=== PATIENT | female | born 1955 | race Two or more races ===

== ENCOUNTER 2023-01-13 22:35 | Inpatient (IN) | payer OTHER ==
[~2023-01-13] VITALS: Ht 167.6 cm; Wt 61.7 kg
[2023-01-14 02:04] LABS: Basophils # (auto) 0 10 ^3/uL (0-0.2); Basophils % (auto) 0.4 % (0.0-2.0); Eosinophils # (auto) 0.2 10 ^3/uL (0-0.8); Eosinophils % (auto) 2.4 % (0.0-7.0); Hematocrit 35.2 % (36.0-46.0); Hemoglobin 11.8 g/dL (12.2-16.2); Lymphocytes # (auto) 1.4 10 ^3/uL (0.4-5.4); Lymphocytes % (auto) 18.6 % (10.0-50.0); Mean Corpuscular Hemoglobin 30.9 pg (28.0-32.0); Mean Corpuscular Hgb Conc. 33.6 g/dL (32.0-36.0); Mean Corpuscular Volume 92.1 fL (80.0-100.0); Monocytes # (auto) 0.5 10 ^3/uL (0-1.3); Monocytes % (auto) 6.9 % (0.0-12.0); Neutrophils # (auto) 5.2 10 ^3/uL (1.6-8.6); Neutrophils % (auto) 71.7 % (37.0-80.0); Nucleated Red Blood Cells % 0.1 %; Red Blood Cells 3.82 10^6/uL (4.0-5.20); White Blood Cell 7.3 10^3/uL (4.4-10.8)
[2023-01-14 02:22] LABS: Albumin 2.9 g/dL (3.4-5.0); Calcium 8.7 mg/dL (8.5-10.1); Potassium 3.5 mmol/L (3.5-5.1)
[2023-01-14 02:24] LABS: BUN/Creatinine Ratio 17.9 (10.0-20.0)
[2023-01-14 02:27] LABS: Bilirubin, Total 0.2 mg/dL (0.2-1.0); Total Protein 6.9 g/dL (6.4-8.2)
[2023-01-14] MEDS ORDERED: VANCOMYCIN PER PHARMACY 0 MG IV SCH ×2 (02:45→11:45)
[2023-01-14] MEDS ORDERED: VANCOMYCIN 1GM/250ML 250 ML IV ONE (03:00)
[2023-01-14] MEDS ORDERED: HYDROcodone-ACET 10/325MG TAB PO ONE (04:30)
[2023-01-14] MEDS ORDERED: ONDANSETRON HCL 4 MG/2 ML VIAL IV PRN (11:45)
[2023-01-14] MEDS ORDERED: MORPHINE SULFATE INJ 2 MG/ml SYRG IV PRN (11:45)
[2023-01-14] MEDS ORDERED: ACETAMINOPHEN 325 MG TAB PO PRN (11:45)
[2023-01-14] MEDS ORDERED: DOCUSATE SOD 100 MG CAP PO PRN (11:45)
[2023-01-14] MEDS ORDERED: PIPERACILLIN-TAZOB 3.375GM 100 ML IV SCH (12:00)
[2023-01-14] MEDS ORDERED: VANCOMYCIN 1GM/250ML 250 ML IV SCH ×2 (12:00)
[2023-01-14] MEDS: HYDROcodone-ACET 5/325MG TAB PO PRN ×2 (15:27→23:31)
[2023-01-14] MEDS ORDERED: PIPERACILLIN-TAZOB 3.375GM 100 ML IV ONE (20:00)
[2023-01-14] MEDS: ASCORBIC ACID 500 MG TAB PO SCH (22:43)
[2023-01-15] MEDS: PIPERACILLIN-TAZOB 3.375GM 100 ML IV SCH ×4 (03:22→20:53)
[2023-01-15 03:49] LABS: Albumin 2.8 g/dL (3.4-5.0); BUN/Creatinine Ratio 21.3 (10.0-20.0); Calcium 8.9 mg/dL (8.5-10.1); Phosphorus 3.2 mg/dL (2.5-4.90); Potassium 4.5 mmol/L (3.5-5.1)
[2023-01-15] MEDS: HYDROcodone-ACET 5/325MG TAB PO PRN ×3 (08:29→21:03)
[2023-01-15] MEDS: ZINC SULFATE 220mg CAP or TAB PO SCH (10:04)
[2023-01-15] MEDS: ASCORBIC ACID 500 MG TAB PO SCH ×2 (10:04→20:54)
[2023-01-15] MEDS: ENOXAPARIN SOD 40 MG/0.4 ML SYRINGE SC SCH (10:04)
[2023-01-15] MEDS ORDERED: HYDR-4798 PO (12:25)
[2023-01-15 13:00] VITALS: BP 99/69
[2023-01-15 17:00] VITALS: BP 127/89
[2023-01-15] MEDS: VANCOMYCIN 1GM/250ML 250 ML IV SCH (17:21)
[2023-01-15 22:00] VITALS: BP 99/66
[2023-01-16] MEDS: PIPERACILLIN-TAZOB 3.375GM 100 ML IV SCH ×2 (02:05→11:04)
[2023-01-16 05:00] VITALS: BP 107/65
[2023-01-16] MEDS: HYDROcodone-ACET 5/325MG TAB PO PRN (07:33)
[2023-01-16 08:40] VITALS: BP 118/71
[2023-01-16] MEDS: ASCORBIC ACID 500 MG TAB PO SCH (09:15)
[2023-01-16] MEDS: ENOXAPARIN SOD 40 MG/0.4 ML SYRINGE SC SCH (09:15)
[2023-01-16] MEDS: ZINC SULFATE 220mg CAP or TAB PO SCH (09:15)
[2023-01-16] MEDS: VANCOMYCIN 1GM/250ML 250 ML IV SCH (12:25)
[2023-01-16 12:54] VITALS: BP 117/67
[2023-01-16] MEDS ORDERED: PENICILLIN V POTASSIUM 250 MG TAB PO ONE (13:45)
[2023-01-16] MEDS ORDERED: PENI500T2 PO (13:56)
[2023-01-16 15:02] VITALS: BP 117/67
[2023-01-16] MEDS ORDERED: PIPERACILLIN-TAZOB 3.375GM 100 ML IV SCH (19:00)
[2023-01-17] MEDS ORDERED: VANCOMYCIN 1GM/250ML 250 ML IV SCH
== END 2023-01-16 15:35 | disposition home or self-care (01) | DRG 603 ==
LOC: ER 22:35 → OVERFLOW 01-14 11:43 → CENTRAL 01-15 10:59
PROVIDERS: ADMIT Internal Medicine; ATTEND Internal Medicine
DX: L03.115 Cellulitis of right lower limb (principal); F11.20 Opioid dependence, uncomplicated; F17.210 Nicotine dependence, cigarettes, uncomplicated; G89.29 Other chronic pain; M54.9 Dorsalgia, unspecified; R59.1 Generalized enlarged lymph nodes; G62.9 Polyneuropathy, unspecified; Z88.1 Allergy status to other antibiotic agents
CPT/HCPCS: 36415; 73590; 80053; 80069; 80202; 83605; 85025; 87081; 93971; 96365; 96366; 96367; 97110; 97116; 97163; 97530; G0378; J2543

== ENCOUNTER 2023-09-18 15:54 | Emergency (ER) | payer OTHER ==
[~2023-09-18] VITALS: Ht 154.9 cm; Wt 64.4 kg
[~2023-09-18 15:54] MED LIST: HYDR-4798 PO; PENI500T2 PO
[2023-09-18] MEDS ORDERED: CLIN150C18 PO (22:03)
[2023-09-18 22:20] VITALS: BP 171/69; PULSE 74; RESP 18; O2SAT 100
[2023-09-18] MEDS: diphenhdrAMINE HCL 25 MG CAP PO ONE (22:22)
== END 2023-09-18 22:23 | disposition home or self-care (01) ==
LOC: ER 15:54
DX: L03.115 Cellulitis of right lower limb (principal); F17.210 Nicotine dependence, cigarettes, uncomplicated; Z90.49 Acquired absence of other specified parts of digestive tract; Z79.2 Long term (current) use of antibiotics; Z79.899 Other long term (current) drug therapy; Z88.8 Allergy status to other drugs, medicaments and biological substances
CPT/HCPCS: 93971

== ENCOUNTER 2023-10-29 02:39 | Emergency (ER) | payer OTHER ==
[~2023-10-29] VITALS: Ht 167.6 cm; Wt 64.0 kg
[~2023-10-29 02:39] MED LIST changes: +DOXY-448 PO; -HYDR-4798 PO; +LEVO500T91 PO; -PENI500T2 PO
[2023-10-29] MEDS ORDERED: [UNRECOGNIZED DRUG - CODE] PO (08:34)
[2023-10-29 09:42] VITALS: PULSE 71; RESP 20; O2SAT 99
[2023-10-29 09:54] VITALS: BP 140/70; PULSE 84; RESP 16; TEMP 98; O2SAT 99
== END 2023-10-29 09:17 | disposition home or self-care (01) ==
LOC: ER 02:39
DX: B82.9 Intestinal parasitism, unspecified (principal); B88.8 Other specified infestations; F17.210 Nicotine dependence, cigarettes, uncomplicated; Z88.6 Allergy status to analgesic agent

== ENCOUNTER 2023-11-05 22:25 | Emergency (ER) | payer OTHER ==
[~2023-11-05] VITALS: Ht 167.6 cm; Wt 61.8 kg
[~2023-11-05 22:25] MED LIST changes: +[UNRECOGNIZED DRUG - CODE] PO
[2023-11-06 00:47] LABS: Basophils # (auto) 0 10 ^3/uL (0-0.2); Basophils % (auto) 0.5 % (0.0-2.0); Eosinophils # (auto) 0.3 10 ^3/uL (0-0.8); Hematocrit 37.9 % (36.0-46.0); Hemoglobin 12.6 g/dL (12.2-16.2); Lymphocytes # (auto) 1.5 10 ^3/uL (0.4-5.4); Lymphocytes % (auto) 19.8 % (10.0-50.0); Mean Corpuscular Hemoglobin 29.5 pg (28.0-32.0); Mean Corpuscular Hgb Conc. 33.2 g/dL (32.0-36.0); Mean Corpuscular Volume 88.7 fL (80.0-100.0); Monocytes # (auto) 0.6 10 ^3/uL (0-1.3); Monocytes % (auto) 7.6 % (0.0-12.0); Neutrophils # (auto) 5.1 10 ^3/uL (1.6-8.6); Neutrophils % (auto) 68.1 % (37.0-80.0); Red Blood Cells 4.27 10^6/uL (4.0-5.20); Red Cell Distribution Width 13.6 % (11.8-14.3); White Blood Cell 7.5 10^3/uL (4.4-10.8)
[2023-11-06 00:59] LABS: Alanine Aminotransferase 12 U/L (7-40); Albumin 4.3 g/dL (3.2-4.8); Alkaline Phosphatase 110 U/L (46-116); Anion Gap 7 (5-15); Aspartate Aminotransferase 17 U/L (13-40); BUN/Creatinine Ratio 20.9 (10.0-20.0); Blood Urea Nitrogen 19 mg/dL (9-23); Calcium 10.6 mg/dL (8.7-10.4); Carbon Dioxide 28 mmol/L (20-30); Chloride 103 mmol/L (98-107); Glucose 144 mg/dL (74-106); Lipase 77 U/L (12-53); Sodium 138 mmol/L (136-145)
[2023-11-06 01:00] LABS: Bilirubin, Total 0.3 mg/dL (0.2-1.0); Total Protein 7.2 g/dL (5.7-8.2)
[2023-11-06] MEDS ORDERED: ACET500T58 PO (01:20)
[2023-11-06] MEDS ORDERED: BACDST PO (01:20)
[2023-11-06] MEDS ORDERED: [UNRECOGNIZED DRUG - CODE] PO (01:20)
[2023-11-06 01:27] LABS: Urine Bacteria FEW /hpf (None Seen); Urine Blood TRACE /uL (Negative); Urine Budding Yeast OCCASIONAL /hpf (None Seen); Urine Clarity Clear (Clear); Urine Color Light-Yellow (Yellow); Urine Protein, UAD Negative (Negative); Urine Specific Gravity 1.018 (1.001-1.035); Urine Urobilinogen Normal (Negative); Urine WBC 3 /hpf (0 - 5)
[2023-11-06] MEDS: SULFAMETHOX W/TRIMETH(800/160MG) DS TAB PO ONE (01:30)
[2023-11-06] MEDS: HYDROcodone-ACET 5/325MG TAB PO ONE (02:53)
[2023-11-06 03:13] VITALS: BP 156/92; TEMP 98.7; O2SAT 97
[2023-11-06 03:25] VITALS: PULSE 108; RESP 20
== END 2023-11-06 03:24 | disposition home or self-care (01) ==
LOC: ER 22:25
DX: B80 Enterobiasis (principal); L03.116 Cellulitis of left lower limb; L03.115 Cellulitis of right lower limb
CPT/HCPCS: 36415; 80053; 81001; 83605; 83690; 84484; 85025

== ENCOUNTER 2024-05-04 18:41 | Emergency (ER) | payer OTHER ==
[~2024-05-04] VITALS: Ht 167.6 cm; Wt 59.7 kg
[~2024-05-04 18:41] MED LIST changes: +ACET500T58 PO; +BACDST PO; -DOXY-448 PO; +DOXY100C79 PO
[2024-05-04] MEDS: HYDROcodone-ACET 5/325MG TAB PO ONE (20:00)
[2024-05-04 20:05] VITALS: BP 131/78; PULSE 90; RESP 17; TEMP 98.4; O2SAT 98
[2024-05-04] MEDS ORDERED: HYDR-4902 PO (20:16)
== END 2024-05-04 20:37 | disposition home or self-care (01) ==
LOC: ER 18:41
DX: S29.011A Strain of muscle and tendon of front wall of thorax, initial encounter (principal); F17.210 Nicotine dependence, cigarettes, uncomplicated; Z90.49 Acquired absence of other specified parts of digestive tract; Z88.1 Allergy status to other antibiotic agents; Z79.899 Other long term (current) drug therapy; W01.198A Fall on same level from slipping, tripping and stumbling with subsequent striking against other object, initial encounter; Y93.89 Activity, other specified; Y92.098 Other place in other non-institutional residence as the place of occurrence of the external cause; Y99.8 Other external cause status
CPT/HCPCS: 71101

== ENCOUNTER 2024-05-26 01:38 | Emergency (ER) | payer OTHER ==
[~2024-05-26] VITALS: Ht 167.6 cm; Wt 63.0 kg
[~2024-05-26 01:38] MED LIST changes: +HYDR-4902 PO
[2024-05-26 02:53] VITALS: BP 139/79; PULSE 90; RESP 18; TEMP 97.7; O2SAT 99
--- NOTE | 2024-05-26 02:55 | ED.PDOC ---
History of Present Illness(SKN HPI Comments THIS IS A 68-YEAR-OLD FEMALE PRESENTS TO THE ED CHIEF COMPLAINT RASH TIMES 1 YEAR. PATIENT REPORTS SPOUSE WITH THE SAME RASH. SHE STATES SHE WAS TOLD IT WAS SCABIES HOWEVER DISAGREES WITH THIS DIAGNOSIS. SHE STATES TREATMENTS IN THE PAST WITH HELP. DENIES FEVER, NAUSEA, VOMITING, CHEST PAIN, SHORTNESS OF BREATH. Chief Complaint: Rash Time Seen by MD: 01:48 Primary Care Provider: RAOUL History of Present Illness: Nurses Notes, Medications, Allergies Allergies: Coded Allergies: Ceftriaxone (Verified Allergy, Unknown, 01/13/23) Home Meds Active Scripts Hydrocodone-Acetaminophen (Hydrocodone Bitartrate/AC 5-325 mg) 1 Tab Tab, 1 TAB PO Q12HP PRN for 2 Days, #4 TAB Prov:CHRISTOPH DEL VALLE MD 05/04/24 Mebendazole (Emverm) 100 Mg Chw, 100 MG PO BID for 3 Days, #6 TAB.CHEW Prov:OLMAN HELLER [facility] 11/06/23 Acetaminophen (Acetaminophen) 500 Mg Tab, 500 MG PO Q4HP PRN, #30 TAB Prov:OLMAN HELLER 11/06/23 Sulfamethoxazole W/Trimethopri (Bactrim Ds Tablet) 1 Tab Tb, 1 TAB PO BID for 10 Days, #20 TAB Prov:OLMAN HELLER 11/06/23 Mebendazole (Emverm) 100 Mg Chw, 100 MG PO BID for 3 Days, #6 TAB.CHEW 1 Refill Prov:TAI WEAVERP 10/29/23 Levofloxacin Hemihydrate (LEVAQUIN 500 MG) 500 Mg Tab, 1 TAB PO DAILY for 21 Days, #21 TAB Prov:DAVID RESENDEZ MD 10/09/23 Doxycycline (Monohydrate) (Doxycycline) 100 Mg Cap, 100 MG PO BID for 21 Days, #42 CAP Prov:DAVID RESENDEZ MD 10/09/23 Mode of Arrival: Ambulatory Past Medical History PAST MEDICAL HISTORY: PUD Surgical History: Appendectomy CLINICAL INFORMATICS SPECIALIST History: No Pertinent CLINICAL INFORMATICS SPECIALIST History Family History Family History: Reviewed,noncontributory to illness Social History Smoker: Cigarettes Alcohol: Denies ETOH Use Drugs: Denies Drug Use Lives In: Home Constitutional: denies: chills, diaphoresis, fatigue, fever, malaise, sweats, weakness, others EENTM: denies: blurred vision, double vision, ear bleeding, ear discharge, ear drainage, ear pain, ear ringing, eye pain, eye redness, hearing loss, mouth pain, mouth swelling, nasal discharge, nose bleeding, nose congestion, nose pain, photophobia, tearing, throat pain, throat swelling, voice changes, others Respiratory: denies: cough, hemoptysis, orthopnea, SOB at rest, shortness of breath, SOB with excertion, stridor, wheezing, others Cardiovascular: denies: chest pain, dizzy spells, diaphoresis, Dyspnea on exertion, edema, irregular heart beat, left arm pain, lightheadedness, palpitations, PND, syncope, others Gastrointestinal: denies: abdomen distended, abdominal pain, blood streaked bowels, constipated, diarrhea, dysphagia, difficulty swallowing, hematemesis, melena, nausea, poor appetite, poor fluid intake, rectal bleeding, rectal pain, vomiting, others Genitourinary: denies: abnormal vagina bleeding, burning, dyspareunia, dysuria, flank pain, frequency, hematuria, incontinence, pain, , vagina discharge, urgency, others Neurological: denies: dizziness, fainting, headache, left sided numbness, left sided weakness, numbness, paresthesia, pre-existing deficit, right sided numbness, right sided weakness, seizure, speech problems, tingling, tremors, weakness, others Musculoskeletal: denies: back pain, gout, joint pain, joint swelling, muscle pain, muscle stiffness, neck pain, others Integumetry: reports: rash; denies: bruises, change in color, change in hair/nails, dryness, laceration, lesions, lumps, wounds, others Allergic/Immunocompromised: denies: Difficulty Healing, Frequent Infections, Hives, Itching, others Hematologic/Lymphatic: denies: anemia, blood clots, easy bleeding, easy bruising, swollen glands, others Endocrine: denies: excessive hunger, excessive sweating, excessive thirst, excessive urination, flushing, intolerance to cold, intolerance to heat, unexplained weight gain, unexplained weight loss, others Psychiatric: denies: anxiety, bipolar disorder, depression, hopeless, panic disorder, schizophrenia, sleepless, suicidal, others Physical Exam General Appearance: No Apparent Distress, Normal HEENT: Normal ENT Inspection, Pharynx Normal Neck: Full Range of Motion, Non-Tender Respiratory: Chest Non-Tender, Lungs Clear, No Accessory Muscle Use, No Respiratory Distress, Normal Breath Sounds Cardiovascular: No Murmur, Normal Peripheral Pulses, Regular Rate/Rhythm Breast Exam: Deferred Gastrointestinal: No Organomegaly, Non Tender, No Pulsatile Mass, Normal Bowel Sounds, Soft Genitalia: Deferred Pelvic: Deferred Rectal: Deferred Extremities: Normal capillary refill, Normal inspection, Normal range of motion, Non-tender, No pedal edema Musculoskeletal : Apperance: Normal Neurologic: Alert, slitting and shipping supervisor II-XII nml as Tested, No Motor Deficits, Normal Affect, Normal Mood, No Sensory Deficits Cerebellar Function: Normal Reflexes: Normal Skin: Dry, Normal Color, Warm Lymphatic: No Adenopathy Was a procedure done? Was a procedure done?: No Differential Diagnosis (INTG) Differential Diagnosis: Cellulitis X-Ray, Labs, Meds, VS Vital Signs Date Time Temp Pulse Resp B/P (MAP) Pulse Ox O2 Delivery O2 Flow Rate FiO2 05/26/24 02:53 90 18 99 Room Air 05/26/24 02:53 97.7 90 18 139/79 (99) 99 97.7 05/26/24 02:39 97.7 90 18 139/79 (99) 99 X-Ray, Labs, Meds, VS Comment LIKELY SHINGLES WE WILL START WITH ACYCLOVIR. ADVISED TO FOLLOW UP WITH HER PCP IN 2-3 DAYS FOR RE-EVALUATION. ADVISED TO RETURN TO THE ER FOR INCREASING PAIN, INCREASING RASH, OR ANY EYE INVOLVEMENT. PATIENT AGREES WITH DISCHARGE PLAN OF CARE. Time of 1ST Reevaluation: 03:01 Reevaluation 1ST: Unchanged Patient Education/Counseling: Diagnosis, Treatment, Prognosis, Need For Follow Up Family Education/Counseling: Diagnosis, Treatment, Prognosis, Need For Follow Up Departure 1 Departure Time of Disposition: 03:02 Impression: Primary Impression: Shingles Qualified Codes: B02.9 - Zoster without complications Additional Impression: Otitis externa due to herpes zoster Disposition: 01 HOME / SELF CARE / HOMELESS Condition: Stable e-Prescriptions Lidocaine Hcl (Lidocaine) 3 % Cre 3 % EX TID PRN for 5 Days, #28.3 GRAMS APPLY THIN LAYER TO AFFECTED AREAS 3 TIMES A DAY NEEDED FOR PAIN Prov: BALTA CAMARGO 11/17/24 Ibuprofen (Ibuprofen) 800 Mg Tab 1 TAB PO TID PRN for 5 Days, #15 TAB 1 Refill Prov: BALTA CAMARGO 05/26/24 Valacyclovir HCl (Valacyclovir HCl) 1 Gm Tab 1 GM PO TID for 7 Days, #21 TAB Prov: BALTA CAMARGO 05/26/24 Discharged With: Spouse Critical Care Note Critical Care Time?: No Stability Stability form required: No BALTA CAMARGO May 26, 2024 02:55
[2024-05-26] MEDS ORDERED: VALA1TAB34 PO (03:08)
[2024-05-26] MEDS ORDERED: LIDO3CRE16 EX (03:08)
[2024-05-26] MEDS ORDERED: IBUP-1456 PO (03:08)
== END 2024-05-26 03:13 | disposition home or self-care (01) ==
LOC: ER 01:38
DX: B02.8 Zoster with other complications (principal); F17.210 Nicotine dependence, cigarettes, uncomplicated; Z87.11 Personal history of peptic ulcer disease; Z88.1 Allergy status to other antibiotic agents; Z90.49 Acquired absence of other specified parts of digestive tract

== ENCOUNTER 2024-09-21 17:59 | Emergency (ER) | payer OTHER ==
[~2024-09-21] VITALS: Ht 167.6 cm; Wt 64.1 kg
[~2024-09-21 17:59] MED LIST changes: +IBUP-1456 PO; +VALA1TAB34 PO
[2024-09-21 21:37] LABS: Basophils # (auto) 0 10 ^3/uL (0-0.2); Basophils % (auto) 0.3 % (0.0-2.0); Eosinophils # (auto) 0.5 10 ^3/uL (0-0.8); Eosinophils % (auto) 7.6 % (0.0-7.0); Hematocrit 40.9 % (36.0-46.0); Hemoglobin 13.6 g/dL (12.2-16.2); Lymphocytes # (auto) 1.1 10 ^3/uL (0.4-5.4); Lymphocytes % (auto) 15.6 % (10.0-50.0); Mean Corpuscular Hemoglobin 29.5 pg (28.0-32.0); Mean Corpuscular Hgb Conc. 33.3 g/dL (32.0-36.0); Mean Corpuscular Volume 88.4 fL (80.0-100.0); Monocytes # (auto) 0.4 10 ^3/uL (0-1.3); Monocytes % (auto) 6.5 % (0.0-12.0); Neutrophils # (auto) 4.8 10 ^3/uL (1.6-8.6); Platelet Count (auto) 268 10^3/uL (140-450); Red Blood Cells 4.63 10^6/uL (4.0-5.20); Red Cell Distribution Width 14.6 % (11.8-14.3); White Blood Cell 6.8 10^3/uL (4.4-10.8)
[2024-09-21 21:50] LABS: Alanine Aminotransferase 15 U/L (7-40); Albumin 4.3 g/dL (3.2-4.8); Anion Gap 8 (5-15); Aspartate Aminotransferase 24 U/L (13-40); BUN/Creatinine Ratio 14.1 (10.0-20.0); Blood Urea Nitrogen 10 mg/dL (9-23); Calcium 9.9 mg/dL (8.7-10.4); Carbon Dioxide 25 mmol/L (20-31); Chloride 103 mmol/L (98-107); Potassium 4.2 mmol/L (3.5-5.1); Sodium 136 mmol/L (136-145); Total Protein 6.9 g/dL (5.7-8.2)
[2024-09-21 21:51] LABS: Alkaline Phosphatase 141 U/L (46-116); Bilirubin, Total 0.2 mg/dL (0.2-1.0); Glucose 110 mg/dL (74-106)
[2024-09-21 21:55] VITALS: PULSE 97; RESP 20; O2SAT 99
[2024-09-21 22:04] LABS: Lipase 32 U/L (12-53)
[2024-09-21] MEDS: SODIUM CHLORIDE 0.9% 1,000 ML IV ONE (22:05)
[2024-09-21] MEDS: HYDROmorphone HCL 2 MG/ML VL/or syr IM ONE (22:06)
[2024-09-21 22:56] LABS: Urine Bacteria None Seen /hpf (None Seen)
[2024-09-21 23:06] LABS: Urine Blood Negative /uL (Negative); Urine Clarity Clear (Clear); Urine Color Colorless (Yellow); Urine Protein, UAD Negative (Negative); Urine Specific Gravity 1.006 (1.001-1.035); Urine Squamous Epithelial Cell FEW /hpf (<5); Urine Urobilinogen Normal (Negative); Urine WBC < 1 /HPF (0-5); Urine pH 5.5 (5.0-9.0)
[2024-09-21 23:30] VITALS: PULSE 109; RESP 12; TEMP 98.6; O2SAT 100
[2024-09-22] MEDS: PIPERACILLIN-TAZOB 3.375GM 100 ML IV ONE (00:31)
--- NOTE | 2024-09-22 00:59 | ED.PDOC ---
History of Present Illness(SKN HPI Comments This patient is a 68-year-old female who appears to be in poor overall health arrives the ED today for evaluation of bilateral lower extremity wounds that are weeping and has been for the past several days. Patient states she has some issues with a chronic wounds on her lower extremities and that when they reach this stage, she has had events were she has developed cellulitis and sepsis. Patient denies any fever nausea or vomiting. Patient arrives with objective weeping wounds. Chief Complaint: Wound Check Time Seen by MD: 18:43 Primary Care Provider: RAOUL History of Present Illness: Nurses Notes Allergies: Coded Allergies: Ceftriaxone (Verified Allergy, Unknown, 01/13/23) Home Meds Active Scripts Ibuprofen (Ibuprofen) 800 Mg Tab, 1 TAB PO TID PRN for 5 Days, #15 TAB 1 Refill Prov:BALTA CAMARGO [facility] 05/26/24 Valacyclovir HCl (Valacyclovir HCl) 1 Gm Tab, 1 GM PO TID for 7 Days, #21 TAB Prov:BALTA CAMARGO [facility] 05/26/24 Hydrocodone-Acetaminophen (Hydrocodone Bitartrate/AC 5-325 mg) 1 Tab Tab, 1 TAB PO Q12HP PRN for 2 Days, #4 TAB Prov:CHRISTOPH DEL VALLE MD 05/04/24 Mebendazole (Emverm) 100 Mg Chw, 100 MG PO BID for 3 Days, #6 TAB.CHEW Prov:OLMAN HELLER [facility] 11/06/23 Acetaminophen (Acetaminophen) 500 Mg Tab, 500 MG PO Q4HP PRN, #30 TAB Prov:OLMAN HELLER [facility] 11/06/23 Sulfamethoxazole W/Trimethopri (Bactrim Ds Tablet) 1 Tab Tb, 1 TAB PO BID for 10 Days, #20 TAB Prov:OLMAN HELLER [facility] 11/06/23 Mebendazole (Emverm) 100 Mg Chw, 100 MG PO BID for 3 Days, #6 TAB.CHEW 1 Refill Prov:TAI WEAVER [facility] 10/29/23 Levofloxacin Hemihydrate (LEVAQUIN 500 MG) 500 Mg Tab, 1 TAB PO DAILY for 21 Days, #21 TAB Prov:DAVID RESENDEZ MD 10/09/23 Doxycycline (Monohydrate) (Doxycycline) 100 Mg Cap, 100 MG PO BID for 21 Days, #42 CAP Prov:DAVID RESENDEZ MD 10/09/23 Information Source: Patient, Friend Mode of Arrival: Ambulatory Severity: Severe Timing: Days Duration: Since onset Prehospital treatment: None Location: Leg Mechanism: Preceding Wound Developed: Rash Occurence: Indoors Object: None Condition of Object: None Retained Foreign Body: No Tetanus: UTD Associated Signs and Symptoms: Redness, Swelling, Pus Past Medical History PAST MEDICAL HISTORY: PUD Surgical History: Appendectomy HOGSHEAD DUMPER History: No Pertinent HOGSHEAD DUMPER History Family History Family History: Reviewed,noncontributory to illness Social History Smoker: Cigarettes Alcohol: Denies ETOH Use Drugs: Denies Drug Use Lives In: Home Constitutional: denies: chills, diaphoresis, fatigue, fever, malaise, sweats, weakness, others EENTM: denies: blurred vision, double vision, ear bleeding, ear discharge, ear drainage, ear pain, ear ringing, eye pain, eye redness, hearing loss, mouth pain, mouth swelling, nasal discharge, nose bleeding, nose congestion, nose pain, photophobia, tearing, throat pain, throat swelling, voice changes, others Respiratory: denies: cough, hemoptysis, orthopnea, SOB at rest, shortness of breath, SOB with excertion, stridor, wheezing, others Cardiovascular: denies: chest pain, dizzy spells, diaphoresis, Dyspnea on exertion, edema, irregular heart beat, left arm pain, lightheadedness, palpitations, PND, syncope, others Gastrointestinal: denies: abdomen distended, abdominal pain, blood streaked bowels, constipated, diarrhea, dysphagia, difficulty swallowing, hematemesis, melena, nausea, poor appetite, poor fluid intake, rectal bleeding, rectal pain, vomiting, others Genitourinary: denies: abnormal vagina bleeding, burning, dyspareunia, dysuria, flank pain, frequency, hematuria, incontinence, pain, , vagina discharge, urgency, others Neurological: denies: dizziness, fainting, headache, left sided numbness, left sided weakness, numbness, paresthesia, pre-existing deficit, right sided numbness, right sided weakness, seizure, speech problems, tingling, tremors, weakness, others Musculoskeletal: denies: back pain, gout, joint pain, joint swelling, muscle pain, muscle stiffness, neck pain, others Integumetry: reports: wounds (Weeping wounds to bilateral lower extremities); denies: bruises, change in color, change in hair/nails, dryness, laceration, lesions, lumps, rash, others Allergic/Immunocompromised: denies: Difficulty Healing, Frequent Infections, Hives, Itching, others Hematologic/Lymphatic: denies: anemia, blood clots, easy bleeding, easy bruising, swollen glands, others Endocrine: denies: excessive hunger, excessive sweating, excessive thirst, excessive urination, flushing, intolerance to cold, intolerance to heat, unexplained weight gain, unexplained weight loss, others Psychiatric: denies: anxiety, bipolar disorder, depression, hopeless, panic disorder, schizophrenia, sleepless, suicidal, others Physical Exam General Appearance: Moderate Distress (Due to weeping wounds and leg pain.), Normal HEENT: Normal ENT Inspection, Pharynx Normal, TMs Normal Neck: Full Range of Motion, Non-Tender, Normal, Normal Inspection Respiratory: Chest Non-Tender, Lungs Clear, No Accessory Muscle Use, No Respiratory Distress, Normal Breath Sounds Cardiovascular: No Edema, No JVD, No Murmur, No Gallop, Normal Peripheral Pulses, Regular Rate/Rhythm Breast Exam: Deferred Gastrointestinal: No Organomegaly, Non Tender, No Pulsatile Mass, Normal Bowel Sounds, Soft Genitalia: Deferred Pelvic: Deferred Rectal: Deferred Extremities: Other (Patient has significant brawny edema as well as weepage throughout bilateral lower extremities. Localized erythema and edema. Wounds appear infected.) Neurologic: NOT DONE Cerebellar Function: NOT DONE Reflexes: NOT DONE Skin: Dry, Normal Color, Warm Lymphatic: No Adenopathy Was a procedure done? Was a procedure done?: No Differential Diagnosis (INTG) Differential Diagnosis: Cellulitis, Other (Sepsis, electrolyte abnormality, peripheral edema) X-Ray, Labs, Meds, VS Vital Signs Date Time Temp Pulse Resp B/P (MAP) Pulse Ox O2 Delivery O2 Flow Rate FiO2 09/21/24 22:36 98 20 141/85 09/21/24 22:06 97 20 148/84 09/21/24 21:55 98.1 97 20 148/84 (105) 99 98.1 09/21/24 21:55 97 20 99 Room Air* 0 21 09/21/24 18:26 98.1 78 17 118/84 (95) 97 98.1 Lab Test 09/21/24 22:40 09/21/24 21:05 Range/Units Urine Color Colorless Yellow Urine Clarity Clear Clear Urine pH 5.5 5.0-9.0 Urine Specific [place] 1.006 1.001-1.035 Urine Protein Negative Negative Urine Ketones Negative Negative Urine Blood Negative Negative /uL Urine Nitrite Negative Negative Urine Bilirubin Negative Negative Urine Urobilinogen Normal Negative mg/dL Urine Leukocyte Esterase Negative Negative /uL Urine RBC <1 0 - 4 /hpf Urine Microscopic WBC < 1 0-5 /HPF Urine Squamous Epithelial Cells Few <5 /hpf Urine Bacteria None seen None Seen /hpf Urine Glucose Normal Normal mg/dL White Blood Count 6.8 4.4-10.8 10^3/uL Red Blood Count 4.63 4.0-5.20 10^6/uL Hemoglobin 13.6 12.2-16.2 g/dL Hematocrit 40.9 36.0-46.0 % Mean Corpuscular Volume 88.4 80.0-100.0 fL Mean Corpuscular Hemoglobin 29.5 28.0-32.0 pg Mean Corpuscular Hemoglobin Concent 33.3 32.0-36.0 g/dL Red Cell Distribution Width 14.6 H 11.8-14.3 % Platelet Count 268 140-450 10^3/uL Mean Platelet Volume 6.7 L 6.9-10.8 fL Neutrophils (%) (Auto) 70.0 37.0-80.0 % Lymphocytes (%) (Auto) 15.6 10.0-50.0 % Monocytes (%) (Auto) 6.5 0.0-12.0 % Eosinophils (%) (Auto) 7.6 H 0.0-7.0 % Basophils (%) (Auto) 0.3 0.0-2.0 % Neutrophils # (Auto) 4.8 1.6-8.6 10 ^3/uL Lymphocytes # (Auto) 1.1 0.4-5.4 10 ^3/uL Monocytes # (Auto) 0.4 0-1.3 10 ^3/uL Eosinophils # (Auto) 0.5 0-0.8 10 ^3/uL Basophils # (Auto) 0 0-0.2 10 ^3/uL Nucleated Red Blood Cells 0.0 % Sodium Level 136 136-145 mmol/L Potassium Level 4.2 3.5-5.1 mmol/L Chloride Level 103 98-107 mmol/L Carbon Dioxide Level 25 20-31 mmol/L Anion Gap 8 5-15 Blood Urea Nitrogen 10 9-23 mg/dL Creatinine 0.71 0.550-1.02 mg/dL Glomerular Filtration Rate Calc 93 >90 mL/min BUN/Creatinine Ratio 14.1 10.0-20.0 Serum Glucose 110 H 74-106 mg/dL Lactic Acid Level 1.8 0.4-2.0 mmol/L Calcium Level 9.9 8.7-10.4 mg/dL Total Bilirubin 0.2 0.2-1.0 mg/dL Aspartate Amino Transferase (AST) 24 13-40 U/L Alanine Aminotransferase (ALT) 15 7-40 U/L Alkaline Phosphatase 141 H 46-116 U/L Troponin I High Sensitivity 5 </=34 ng/L B-Type Natriuretic Peptide 19.19 0-100 pg/mL Total Protein 6.9 5.7-8.2 g/dL Albumin 4.3 3.2-4.8 g/dL Lipase 32 12-53 U/L Current Medications Medications (Trade) Dose Ordered Sig/Flora Route Start Time Stop Time Status Last Admin Hydromorphone HCl (Dilaudid Injection) 0.5 mg ONCE ONCE IM 09/21/24 20:15 09/21/24 20:16 DC 09/21/24 22:06 Sodium Chloride 1,000 ml @ 150 mls/hr [id number] ONCE IV 09/21/24 20:15 09/22/24 02:54 09/22/24 00:31 Piperacillin Sod/ Tazobactam Sod 100 ml @ 100 mls/hr ONCE ONCE IV 09/22/24 00:00 09/22/24 00:59 DC 09/22/24 00:31 X-Ray, Labs, Meds, VS Comment All studies performed the ED were evaluated by me personally. While serum laboratories and urinalysis were relatively unremarkable, I had concerns about the leg wounds becoming significantly infected. Patient is a [facility] and therefore I spoke with Flor Olivo about concerns. We both agreed to send the patient home on oral antibiotics with a follow up at [facility] on [address] tomorrow. Time of 1ST Reevaluation: 01:37 Reevaluation 1ST: Improved Consultation: PCP Patient Education/Counseling: Diagnosis, Treatment Family Education/Counseling: Diagnosis, Treatment Departure 1 Departure Time of Disposition: 00:58 Impression: Primary Impression: Cellulitis Disposition: HOME / SELF CARE / HOMELESS Condition: Stable Additional Instructions: Advised patient utilize antibiotics as directed and additionally, patient should follow up with the outpatient clinic for [facility] located at [address] [place] [address] in [place]. e-Prescriptions Ibuprofen Micronized (Ibuprofen) 800 Mg Tab 800 MG PO Q8HP PRN, #20 TAB Prov: OLMAN HELLER [facility] 09/22/24 Hydroxyzine Hcl (Hydroxyzine Hcl) 25 Mg Tab 1 TAB PO TID, #20 TAB Prov: OLMAN HELLER 09/22/24 Sulfamethoxazole W/Trimethopri (Bactrim Ds Tablet) 1 Tab Tb 1 TAB PO BID for 10 Days, #20 TAB Prov: OLMAN HELLER 09/22/24 Discharged With: Self, Friend Critical Care Note Critical Care Time?: No Stability Stability form required: No Heart Score Heart Score: Heart Score Response (Comments) Value History Slightly Suspicious 0 EKG Repolarization Disturb 1 Age >65 2 Risk Factors 1 or 2 risk factors 1 Troponin Normal limit 0 Total 4 OLMAN HELLER Sep 22, 2024 00:59
[2024-09-22 01:30] VITALS: BP 153/69; PULSE 103; RESP 24; O2SAT 97
[2024-09-22] MEDS ORDERED: HYDR-3682 PO (01:39)
[2024-09-22] MEDS ORDERED: IBUP-1455 PO (01:40)
--- NOTE | 2024-09-22 01:45 | DVHINCON2 ---
LISET JAIN [facility] 09/22/24 0145: Date of service: Sep 22, 2024 Referring Physician Arron HILL Reason for Consultation Medical Management History of Present Illness Mrs. Chantal Merritt is a 68 yo female with a history of PUD, appendectomy , chronic leg wounds presents with a chief complaint of wound check to bilateral lower extremities. Patient denies any previous antibiotics use for these lower extremity wounds. Patient afebrile , WBC 6.8, H&H 13.6/40.9, Platelets 268, Na 136, K 4.2, BUN 10/0.71, lactic 1.8, BNP 19. Patient denies any lower extremity pain, fevers, chills. Patient ambulates with walker. Past Medical History PUD Past Surgical History Appendectomy Family History: Diabetes mellitus G8 FATHER FH: ovarian cancer G8 MOTHER Hypertension G8 MOTHER Family History Family History: Reviewed,noncontributory to illness Social History Smoker: Cigarettes Alcohol: Denies ETOH Use Drugs: Denies Drug Use Lives In: Home Allergies: Coded Allergies: Ceftriaxone (Verified Allergy, Unknown, 01/13/23) Home Meds Active Scripts Ibuprofen Micronized (Ibuprofen) 800 Mg Tab, 800 MG PO Q8HP PRN, #20 TAB Prov:OLMAN HELLER PAC 09/22/24 Hydroxyzine Hcl (Hydroxyzine Hcl) 25 Mg Tab, 1 TAB PO TID, #20 TAB Prov:OLMAN HELLER [facility] 09/22/24 Sulfamethoxazole W/Trimethopri (Bactrim Ds Tablet) 1 Tab Tb, 1 TAB PO BID for 10 Days, #20 TAB Prov:OLMAN HELLER [facility] 09/22/24 Ibuprofen (Ibuprofen) 800 Mg Tab, 1 TAB PO TID PRN for 5 Days, #15 TAB 1 Refill Prov:BALTA CAMARGO [facility] 05/26/24 Valacyclovir HCl (Valacyclovir HCl) 1 Gm Tab, 1 GM PO TID for 7 Days, #21 TAB Prov:BALTA CAMARGO [facility] 05/26/24 Hydrocodone-Acetaminophen (Hydrocodone Bitartrate/AC 5-325 mg) 1 Tab Tab, 1 TAB PO Q12HP PRN for 2 Days, #4 TAB Prov:CHRISTOPH DEL VALLE MD 05/04/24 Mebendazole (Emverm) 100 Mg Chw, 100 MG PO BID for 3 Days, #6 TAB.CHEW Prov:ARRONOLMAN Roberto [facility] 11/06/23 Acetaminophen (Acetaminophen) 500 Mg Tab, 500 MG PO Q4HP PRN, #30 TAB Prov:OLMAN HELLER [facility] 11/06/23 Sulfamethoxazole W/Trimethopri (Bactrim Ds Tablet) 1 Tab Tb, 1 TAB PO BID for 10 Days, #20 TAB Prov:OLMAN HELLER [facility] 11/06/23 Mebendazole (Emverm) 100 Mg Chw, 100 MG PO BID for 3 Days, #6 TAB.CHEW 1 Refill Prov:OWENTAI [facility] 10/29/23 Levofloxacin Hemihydrate (LEVAQUIN 500 MG) 500 Mg Tab, 1 TAB PO DAILY for 21 Days, #21 TAB Prov:DAVID RESENDEZ MD 10/09/23 Doxycycline (Monohydrate) (Doxycycline) 100 Mg Cap, 100 MG PO BID for 21 Days, #42 CAP Prov:DAVID RESENDEZ MD 10/09/23 Review of Systems Constitutional: denies: chills, diaphoresis, fatigue, fever, malaise, sweats, weakness, others EENTM: denies: blurred vision, double vision, ear bleeding, ear discharge, ear drainage, ear pain, ear ringing, eye pain, eye redness, hearing loss, mouth pain, mouth swelling, nasal discharge, nose bleeding, nose congestion, nose pain, photophobia, tearing, throat pain, throat swelling, voice changes, others Respiratory: denies: cough, hemoptysis, orthopnea, SOB at rest, shortness of breath, SOB with excertion, stridor, wheezing, others Cardiovascular: denies: chest pain, dizzy spells, diaphoresis, Dyspnea on exertion, edema, irregular heart beat, left arm pain, lightheadedness, palpitations, PND, syncope, others Gastrointestinal: denies: abdomen distended, abdominal pain, blood streaked bowels, constipated, diarrhea, dysphagia, difficulty swallowing, hematemesis, melena, nausea, poor appetite, poor fluid intake, rectal bleeding, rectal pain, vomiting, others Genitourinary: denies: abnormal vagina bleeding, burning, dyspareunia, dysuria, flank pain, frequency, hematuria, incontinence, pain, , vagina discharge, urgency, others Neurological: denies: dizziness, fainting, headache, left sided numbness, left sided weakness, numbness, paresthesia, pre-existing deficit, right sided numbness, right sided weakness, seizure, speech problems, tingling, tremors, weakness, others Musculoskeletal: denies: back pain, gout, joint pain, joint swelling, muscle pain, muscle stiffness, neck pain, others Integumetry: reports: wounds (Weeping wounds to bilateral lower extremities); denies: bruises, change in color, change in hair/nails, dryness, laceration, lesions, lumps, rash, others Allergic/Immunocompromised: denies: Difficulty Healing, Frequent Infections, Hives, Itching, others Hematologic/Lymphatic: denies: anemia, blood clots, easy bleeding, easy bruising, swollen glands, others Endocrine: denies: excessive hunger, excessive sweating, excessive thirst, excessive urination, flushing, intolerance to cold, intolerance to heat, unexpl ained weight gain, unexplained weight loss, others Psychiatric: denies: anxiety, bipolar disorder, depression, hopeless, panic disorder, schizophrenia, sleepless, suicidal, others Vital Signs Vital Signs Date Time Temp Pulse Resp B/P (MAP) Pulse Ox O2 Delivery O2 Flow Rate FiO2 09/21/24 22:36 98 20 141/85 09/21/24 21:55 98.1 99 98.1 09/21/24 21:55 Room Air* 0 21 Physical Exam General Appearance: Moderate Distress (Due to weeping wounds and leg pain.), Normal HEENT: Normal ENT Inspection, Pharynx Normal, TMs Normal Neck: Full Range of Motion, Non-Tender, Normal, Normal Inspection Respiratory: Chest Non-Tender, Lungs Clear, No Accessory Muscle Use, No Respiratory Distress, Normal Breath Sounds Cardiovascular: No Edema, No JVD, No Murmur, No Gallop, Normal Peripheral Pulses, Regular Rate/Rhythm Breast Exam: Deferred Gastrointestinal: No Organomegaly, Non Tender, No Pulsatile Mass, Normal Bowel Sounds, Soft Genitalia: Deferred Pelvic: Deferred Rectal: Deferred Extremities: Other Patient has brawny edema as well as weepage throughout bilateral lower extremities. Neurologic: AXO4 Cerebellar Function: NOT DONE Reflexes: NOT DONE Skin: Dry, Normal Color, Warm Lymphatic: No Adenopathy Labs/Diagnostic Data Labs Test 09/21/24 22:40 09/21/24 21:05 Range/Units Urine Color Colorless Yellow Urine Clarity Clear Clear Urine pH 5.5 5.0-9.0 Urine Specific [place] 1.006 1.001-1.035 Urine Protein Negative Negative Urine Ketones Negative Negative Urine Blood Negative Negative /uL Urine Nitrite Negative Negative Urine Bilirubin Negative Negative Urine Urobilinogen Normal Negative mg/dL Urine Leukocyte Esterase Negative Negative /uL Urine RBC <1 0 - 4 /hpf Urine Microscopic WBC < 1 0-5 /HPF Urine Squamous Epithelial Cells Few <5 /hpf Urine Bacteria None seen None Seen /hpf Urine Glucose Normal Normal mg/dL White Blood Count 6.8 4.4-10.8 10^3/uL Red Blood Count 4.63 4.0-5.20 10^6/uL Hemoglobin 13.6 12.2-16.2 g/dL Hematocrit 40.9 36.0-46.0 % Mean Corpuscular Volume 88.4 80.0-100.0 fL Mean Corpuscular Hemoglobin 29.5 28.0-32.0 pg Mean Corpuscular Hemoglobin Concent 33.3 32.0-36.0 g/dL Red Cell Distribution Width 14.6 H 11.8-14.3 % Platelet Count 268 140-450 10^3/uL Mean Platelet Volume 6.7 L 6.9-10.8 fL Neutrophils (%) (Auto) 70.0 37.0-80.0 % Lymphocytes (%) (Auto) 15.6 10.0-50.0 % Monocytes (%) (Auto) 6.5 0.0-12.0 % Eosinophils (%) (Auto) 7.6 H 0.0-7.0 % Basophils (%) (Auto) 0.3 0.0-2.0 % Neutrophils # (Auto) 4.8 1.6-8.6 10 ^3/uL Lymphocytes # (Auto) 1.1 0.4-5.4 10 ^3/uL Monocytes # (Auto) 0.4 0-1.3 10 ^3/uL Eosinophils # (Auto) 0.5 0-0.8 10 ^3/uL Basophils # (Auto) 0 0-0.2 10 ^3/uL Nucleated Red Blood Cells 0.0 % Sodium Level 136 136-145 mmol/L Potassium Level 4.2 3.5-5.1 mmol/L Chloride Level 103 98-107 mmol/L Carbon Dioxide Level 25 20-31 mmol/L Anion Gap 8 5-15 Blood Urea Nitrogen 10 9-23 mg/dL Creatinine 0.71 0.550-1.02 mg/dL Glomerular Filtration Rate Calc 93 >90 mL/min BUN/Creatinine Ratio 14.1 10.0-20.0 Serum Glucose 110 H 74-106 mg/dL Lactic Acid Level 1.8 0.4-2.0 mmol/L Calcium Level 9.9 8.7-10.4 mg/dL Total Bilirubin 0.2 0.2-1.0 mg/dL Aspartate Amino Transferase (AST) 24 13-40 U/L Alanine Aminotransferase (ALT) 15 7-40 U/L Alkaline Phosphatase 141 H 46-116 U/L Troponin I High Sensitivity 5 </=34 ng/L B-Type Natriuretic Peptide 19.19 0-100 pg/mL Total Protein 6.9 5.7-8.2 g/dL Albumin 4.3 3.2-4.8 g/dL Lipase 32 12-53 U/L Assessment This is a 68 yo female with a known history of PUD, appendectomy who presents to the hospital with wound check to bilateral lower extremities. Patient labs all unremarkable WBC 6.8, H&H 13.6/40.9, Platelets 268, Na 136, K 4.2, BUN 10/0.71, lactic 1.8, BNP 19. Patient has not had previous outpatient antibiotic use for her lower extremity wounds. Patient is afebrile 98.1 F. Plan/Recommendation Patient does not meet admission criteria at this time. Recommendation home with PO antibiotics follow up tomorrow at [facility] urgent care for wound follow up. Outpatient infectious disease consultation, and wound care as needed. I spoke with [facility] insurance for outpatient follow ups. Discussed recommendations with patient who verbalizes agreement and understanding. Discussed assessment and recommendation with supervising MD. Discussed recommendations with ER Provider Arron CHARLES Plan discussed with: Patient, Other DAVID RESENDEZ MD 09/26/24 4826: Family History: Diabetes mellitus G8 FATHER FH: ovarian cancer G8 MOTHER Hypertension G8 MOTHER Allergies: Coded Allergies: Ceftriaxone (Verified Allergy, Unknown, 01/13/23) Home Meds Active Scripts Ibuprofen Micronized (Ibuprofen) 800 Mg Tab, 800 MG PO Q8HP PRN, #20 TAB Prov:ARRONOLMAN PAC 09/22/24 Hydroxyzine Hcl (Hydroxyzine Hcl) 25 Mg Tab, 1 TAB PO TID, #20 TAB Prov:OLMAN HELLER PAC 09/22/24 Sulfamethoxazole W/Trimethopri (Bactrim Ds Tablet) 1 Tab Tb, 1 TAB PO BID for 10 Days, #20 TAB Prov:ARRON,OLMAN Mejia [facility] 09/22/24 Ibuprofen (Ibuprofen) 800 Mg Tab, 1 TAB PO TID PRN for 5 Days, #15 TAB 1 Refill Prov:BALTA CAMARGO [facility] 05/26/24 Valacyclovir HCl (Valacyclovir HCl) 1 Gm Tab, 1 GM PO TID for 7 Days, #21 TAB Prov:BALTA CAMARGO [facility] 05/26/24 Hydrocodone-Acetaminophen (Hydrocodone Bitartrate/AC 5-325 mg) 1 Tab Tab, 1 TAB PO Q12HP PRN for 2 Days, #4 TAB Prov:CHRISTOPH DEL VALLE MD 05/04/24 Mebendazole (Emverm) 100 Mg Chw, 100 MG PO BID for 3 Days, #6 TAB.CHEW Prov:ARRON,OLMAN Mejia [facility] 11/06/23 Acetaminophen (Acetaminophen) 500 Mg Tab, 500 MG PO Q4HP PRN, #30 TAB Prov:ARRONOLMAN SMALL [facility] 11/06/23 Sulfamethoxazole W/Trimethopri (Bactrim Ds Tablet) 1 Tab Tb, 1 TAB PO BID for 10 Days, #20 TAB Prov:OLMAN HELLER [facility] 11/06/23 Mebendazole (Emverm) 100 Mg Chw, 100 MG PO BID for 3 Days, #6 TAB.CHEW 1 Refill Prov:TAI WEAVER [facility] 10/29/23 Levofloxacin Hemihydrate (LEVAQUIN 500 MG) 500 Mg Tab, 1 TAB PO DAILY for 21 Days, #21 TAB Prov:DAVID RESENDEZ MD 10/09/23 Doxycycline (Monohydrate) (Doxycycline) 100 Mg Cap, 100 MG PO BID for 21 Days, # 42 CAP Prov:DAVID RESENDEZ MD 10/09/23 Additional Comments Additional Comments Additional Comments I agree with the assessment and plan as outlined by my nurse practitioner. LISET JAIN [facility] Sep 22, 2024 01:45 DAVID RESENDEZ MD Sep 26, 2024 18:33
[2024-09-22] MEDS: hydrOXYzine 25 MG TAB or CAP PO ONE (01:54)
== END 2024-09-22 02:15 | disposition home or self-care (01) ==
LOC: ER 18:04
DX: L03.116 Cellulitis of left lower limb (principal); L03.115 Cellulitis of right lower limb; F17.210 Nicotine dependence, cigarettes, uncomplicated; Z90.49 Acquired absence of other specified parts of digestive tract; Z79.624 Long term (current) use of inhibitors of nucleotide synthesis; Z79.899 Other long term (current) drug therapy; Z88.1 Allergy status to other antibiotic agents
CPT/HCPCS: 36415; 80053; 81001; 83605; 83690; 83880; 84484; 85025; 96365; 96372; 99285; J1171; J2543